=== PATIENT | male | born 1990 ===

== ENCOUNTER 2023-04-11 01:14 | Emergency (ER) | payer SELFPAY ==
[2023-04-11 01:25] VITALS: BP 140/70; PULSE 89; RESP 18; TEMP 37; O2SAT 97
--- NOTE | 2023-04-11 01:25 | W.ED.GENAD ---
Discharge Plan Disposition Patient Disposition: Home Discharge Details Clinical Impression: Alcohol intoxication, Head injury Primary Care Provider: Unknown,Unknown ED Provider: Viviana White Discharge Instructions Instructions: Alcohol Intoxication (ED) Additional Instructions: Patient is medically cleared to be taken to skilled nursing. Return to ED for any concerns. Return to ED for symptoms on head injury sheet. Medical Decision Making Patient was medically clear to be taken to skilled nursing. The transit police officer was very appropriate with the patient. HPI General Date/Time Provider Initiated Documentation: 04/11/23 01:25. HPI Narrative: This 32-year-old male patient was brought in by [place] police for medical clearance to go to skilled nursing. The patient was intoxicated and under arrest. We received a call ahead of time from the [facility] police liaison officer saying the patient had been violent and uncooperative. They requested that we examined the patient in the car which was done. The patient was handcuffed in the backseat of the car. His only complaint was that he did not like the officer and that his hands feel numb. 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 The officer mentioned that the patient had hit his head intentionally and had a superficial forehead lac. Patient just kept yelling that his hands felt numb and that the officer was grabbing his arm too strongly. It was quite obvious that the handcuffs were loose on the patient and the officer was barely holding his arm at all. There was no LOC, neck pain, N, V. Review of Systems Unobtainable due to mental status (intoxicated) Constitutional Constitutional: Reports as per HPI, Denies chills, Denies fever(s) and Denies headache(s) Eyes Eyes: Denies blurry vision and Reports other (no redness) ENT Ears, Nose, Mouth, and Throat: Denies dizziness, Denies otalgia, Denies headache(s), Denies nasal congestion, Denies nasal discharge, Denies neck pain and Denies odynophagia Cardiovascular Cardiovascular: Denies chest pain, Denies palpitations and Denies dyspnea Respiratory Respiratory: Denies cough and Denies dyspnea Gastrointestinal Gastrointestinal: Denies abdominal pain, Denies diarrhea, Denies nausea, Denies odynophagia and Denies vomiting Genitourinary Genitourinary: Denies difficulty urinating and Denies dysuria Musculoskeletal Musculoskeletal: Denies myalgias, Denies muscle weakness, Denies neck pain and Denies numbness Integumentary/Breasts Skin/Breast: Denies erythema and Denies rash Neurologic Neurologic: Denies dizziness, Denies headache(s) and Denies numbness Endocrine Endocrine: Denies palpitations PFSH All Active Problems Alcohol intoxication (Acute) Head injury (Acute) Social History Smoking risk assessment performed?: No Exam Const General: no acute distress, well developed, well groomed and not in acute distress Nutritional Appearance: well nourished Orientation: alert and oriented x3 Other: Smells of alcohol, difficult to rationalize with patient HENMT Head: no palpable skull fracture, normocephalic, signs of trauma (Superficial 2 cm mid forehead laceration with no step-offs), no Kaba's sign and no raccoon eyes Ears: external ears normal and TM's abnormal bilaterally (Cerumen obstructed TMs bilaterally) General nose exam: external nose normal Face and sinus: sinuses nontender Mouth: oropharynx normal and moist mucous membranes Throat: posterior oropharynx normal Eyes Conjunctivae: conjunctivae normal Pupils: dilated (Equal and reactive) EOM: EOM intact bilaterally (tracks well) Neck Neck: full ROM and supple Chest Chest: normal inspection of the chest and normal palpation of entire chest wall Resp Effort & Inspection: normal respiratory effort Auscultation: clear to auscultation bilaterally Cardio Rate: regular rate Rhythm: regular rhythm Heart Sounds: no murmurs and no rubs GI Inspection: normal to inspection Palpation: soft, nontender and other (non distended) Auscultation: normal bowel sounds Back/Spine/Pelvis Back: no CVA tenderness Cervical Spine: No cervical spinal tenderness Thoracic/Lumbar Spine: No thoracic spinal tenderness and No lumbar spinal tenderness Pelvis: no pain with anterior-posterior compression and no pain with lateral compression Skin General skin exam: no rashes or lesions noted (except several superficial scratches) and other (pink, warm, dry) Neuro General: patient alert and patient awake Speech: speech normal Gait: other (not assessed) Motor: muscle tone normal throughout and other (CM) Sensory Exam: no sensory deficits noted Coordination: other (handcuffed) Extrem General: normal to inspection, full ROM and pedal edema present Right upper extremity: wrist (AT, NTP, NL CR) and hand (WNL, warm w/good color) Left upper extremity: wrist (AT, NTP, CR NL) and hand (WNL, warm w/good color) Psych Mental Status: mental status grossly normal Speech and Movement: speech and movement normal Affect: normal affect
[2023-04-11 01:41] VITALS: BP 140/70; PULSE 89; RESP 18; TEMP 37; O2SAT 97
== END 2023-04-11 01:42 | disposition home or self-care (01) ==
LOC: ER 01:38
PROVIDERS: Emergency Provider Emergency Medicine
DX: F10.120 Alcohol abuse with intoxication, uncomplicated (principal); S01.81XA Laceration without foreign body of other part of head, initial encounter; W22.8XXA Striking against or struck by other objects, initial encounter; Y93.89 Activity, other specified
CPT/HCPCS: 99282